=== PATIENT | female | born 1975 | race Caucasian/White ===

== ENCOUNTER 2016-05-03 10:36 | Emergency (ER) | payer OTHER ==
[~2016-05-03] VITALS: Wt 71.0 kg
[2016-05-03] MEDS ORDERED: ONDANSETRON (ODT) 4 MG TAB ODT STA (12:03)
[2016-05-03] MEDS ORDERED: HYDROCODONE/APAP (5/325) TAB PO ONE (12:30)
[2016-05-03 13:56] LABS: ADD UMIC NO; URINE BILIRUBIN (Dip) NEGATIVE (NEGATIVE); URINE BLOOD (Dip) NEGATIVE (NEGATIVE); URINE COLOR LT. YELLOW (YELLOW); URINE GLUCOSE (Dip) >=1000 % (NEGATIVE); URINE KETONES (Dip) 15 (NEGATIVE); URINE LEUKOCYTE ESTERASE (Dip) NEGATIVE (NEGATIVE); URINE NITRITE (Dip) NEGATIVE (NEGATIVE); URINE TOTAL PROTEIN (Dip) NEGATIVE (NEGATIVE); URINE UROBILINOGEN (Dip) 1.0 E.U./dL (0.1-1.0)
[2016-05-03] MEDS ORDERED: FIORICET PO (14:32)
[2016-05-03] MEDS ORDERED: INSU300I SQ (14:32)
[2016-05-03 14:48] VITALS: BP 122/64; PULSE 71; RESP 18
--- NOTE | 2016-05-03 14:52 | ERD ---
ER Documentation Chief Complaint Date/Time DATE: 05/03/16 TIME: 14:49 Chief Complaint HEADACHE X 2 DAYS HPI 40-year-old female with a past medical history of type 1 diabetes and hypothyroidism presents to the ED complaining of an intermittent headache that started 1 week ago. Describes the pain as a severe sensation and states that it is in the temporal region and radiates to the back of her head. Reports that she has had one episode of nonbilious nonbloody vomiting. States that her blood sugar this morning at home was 39. Reports that she takes 38 units of Toujeo insulin. Denies any head or neck trauma. Denies any weakness, numbness or tingling, dizziness, cough, rhinorrhea, abdominal pain, diarrhea, rashes. ROS All systems reviewed and are negative except as per history of present illness. Medications Home Meds Active Scripts Insulin Glargine,Hum.rec.anlog (Toujeo Solostar) 300 Unit/1 Ml Insuln.pen, 38 UNIT SQ DAILY, #1 PKG 1 package with 3 pens Prov:MARIA DE JESUS RIVERA PA-C 05/03/16 Acetamin/Butalbital/Caffeine* (Fioricet*) [id number] Tab, 1 TAB PO Q6H Y for PAIN, #30 TAB Prov:MARIA DE JESUS RIVERA PA-C 05/03/16 PMhx/Soc Medical and Surgical Hx: pt denies Medical Hx, pt denies Surgical Hx Physical Exam Vitals Vital Signs Date Time Temp Pulse Resp B/P Pulse Ox O2 Delivery O2 Flow Rate FiO2 05/03/16 10:43 98.0 74 18 127/66 99 Physical Exam Const: Lao-jsz-zujzepahs, well-nourished. In no acute distress. Head: Atraumatic, normocephalic Eyes: Normal Conjunctiva without injection. No purulent discharge. PERRLA. EOMI ENT: Normal external ear. Ear canal without erythema. Tympanic membrane pearly carballo without effusion or bulging. Nasal canal clear with normal turbinates. Moist oropharynx without tonsillar exudates. Non-erythematous pharynx. Uvula midline. No drooling. No trismus. Neck: No cervical midline tenderness. Full range of motion. No meningismus. No cervical lymphadenopathy. No JVD. Resp: Clear to auscultation bilaterally. No wheezing, rhonchi, rales, or crackles. No accessory muscle use. No retractions. Cardio: Regular rate and rhythm. No murmurs, rubs or gallops. Abd: Soft, non tender, non distended. Normal bowel sounds. No palpable masses. No rebound tenderness. No guarding. Negative McBurney's Point. Negative Martinez's Sign. Skin: Normal skin turgor. No petechiae or rashes Back: No midline tenderness. No CVA tenderness. Ext: No cyanosis, or edema. Distal pulses intact bilaterally. Neur: Awake and alert. Normal gait. Normal coordination. Cranial Nerves II- VII intact. Normal finger to nose. Muscle strength 5/5. Sensation intact. Psych: Normal Mood and Affect Results 24 hrs Laboratory Tests Test 05/03/16 13:03 05/03/16 13:05 Bedside Glucose 155mg/dL Urine Bilirubin NEGATIVE Urine Clarity CLEAR Urine Color LT. YELLOW Urine Glucose >=1000% Urine Hemoglobin NEGATIVE Urine Ketones 15 Urine Leukocyte Esterase NEGATIVE Urine Nitrite NEGATIVE Urine Specific [place] 1.010 Urine Total Protein NEGATIVE Urine Urobilinogen 1.0 E.U./dL Urine pH 6.5 Current Medications Medications (Trade) Dose Ordered Sig/Cathie Route PRN Reason Start Time Stop Time Status Last Admin Dose Admin Ondansetron HCl (Zofran Odt) 4 mg ONCE STAT ODT 05/03/16 12:03 05/03/16 12:08 DC 05/03/16 12:24 Acetaminophen/ Hydrocodone Bitart ([place] (5/325)) 1 tab ONCE ONCE PO 05/03/16 12:30 05/03/16 12:31 DC 05/03/16 12:24 Procedures/MDM This is a 40-year-old female with a past medical history of type 1 diabetes, hypothyroidism presents the ED complaining of a headache that started intermittently 1 week ago. Patient is afebrile and nontoxic-appearing. Patient has normal vital signs. Patient is neurologically intact. Patient was treated here in the ED with [place] and Zofran with improvement of her symptoms. Patient likely has a migraine versus tension headache. Accu-Chek was 155. Urinalysis showed no ketones, hematuria, leukocyte esterase, nitrites. Negative urine . There is low suspicion for cluster headaches, DKA, HHS, intracranial bleed, subarachnoid hemorrhage, subdural hematoma, epidural hematoma, TIA, stroke, seizures, meningitis, or other emergent conditions. Discharge medications: Refill on Toujeo Solostar insulin, Fioricet Follow up with primary care physician in 1-2 days. Instructed patient to return to the ED sooner for any worsening symptoms. Patient's questions were answered. Patient understood and agreed with discharge plan. Patient discharged stable. Departure Diagnosis: Primary Impression: Headache Headache type: unspecified Headache chronicity pattern: unspecified pattern Intractability: not intractable Qualified Code: R51 - Nonintractable headache, unspecified chronicity pattern, unspecified headache type Condition: Stable Patient Instructions: Headache, Unspecified, Insulin Glargine Solution for injection Referrals: ONEIDA MCNALLY (PCP) [facility] YOU HAVE RECEIVED A MEDICAL SCREENING EXAM AND THE RESULTS INDICATE THAT YOU DO NOT HAVE A CONDITION THAT REQUIRES URGENT TREATMENT IN THE EMERGENCY DEPARTMENT. FURTHER EVALUATION AND TREATMENT OF YOUR CONDITION CAN WAIT UNTIL YOU ARE SEEN IN YOUR DOCTORS OFFICE WITHIN THE NEXT 1-2 DAYS. IT IS YOUR RESPONSIBILITY TO MAKE AN APPOINTMENT FOR [facility]ARE. IF YOU HAVE A PRIMARY DOCTOR --you should call your primary doctor and schedule an appointment IF YOU DO NOT HAVE A PRIMARY DOCTOR YOU CAN CALL OUR PHYSICIAN REFERRAL HOTLINE AT IF YOU CAN NOT AFFORD TO SEE A PHYSICIAN YOU CAN CHOSE FROM THE FOLLOWING [facility] [address] [facility] [address] [facility] [address] [facility] [address] [facility]. [facility] [address] [facility]. [address] [facility] YOU HAVE RECEIVED A MEDICAL SCREENING EXAM AND THE RESULTS INDICATE THAT YOU DO NOT HAVE A CONDITION THAT REQUIRES URGENT TREATMENT IN THE EMERGENCY DEPARTMENT. FURTHER EVALUATION AND TREATMENT OF YOUR CONDITION CAN WAIT UNTIL YOU ARE SEEN IN YOUR DOCTORS OFFICE WITHIN THE NEXT 1-2 DAYS. IT IS YOUR RESPONSIBILITY TO MAKE AN APPOINTMENT FOR [facility]ARE. IF YOU HAVE A PRIMARY DOCTOR --you should call your primary doctor and schedule and appointment IF YOU DO NOT HAVE A PRIMARY DOCTOR YOU CAN CALL OUR PHYSICIAN REFERRAL HOTLINE AT . IF YOU CAN NOT AFFORD TO SEE A PHYSICIAN YOU CAN CHOSE FROM THE FOLLOWING [facility] INSTITUTIONS: [facility] [address] [place] [address] [facility] [address] [place] [address] [facility] [address] [place] [address] [facility] URGENT CARE/SPECIALTIES Additional Instructions: FOLLOW UP WITH YOUR PRIMARY CARE PHYSICIAN TOMORROW.Return to this facility if you are not improving as expected. MARIA DE JESUS RIVERA PA-C May 03, 2016 14:52
== END 2016-05-03 14:49 | disposition home or self-care (01) ==
LOC: FTE 10:36
DX: R51 Headache (principal); R11.10 Vomiting, unspecified; I10 Essential (primary) hypertension; E10.9 Type 1 diabetes mellitus without complications; E03.9 Hypothyroidism, unspecified
CPT/HCPCS: 81003; 82962; Z7502; Z7610; 99284

== ENCOUNTER 2016-05-12 10:01 | Emergency (ER) | payer OTHER ==
[~2016-05-12] VITALS: Wt 69.0 kg
[~2016-05-12 10:01] MED LIST: FIORICET PO; INSU300I SQ
[2016-05-12] MEDS ORDERED: HYDROCODONE/APAP (5/325) TAB PO ONE (12:00)
--- NOTE | 2016-05-12 13:23 | RADRPT ---
PROCEDURE: Left Shoulder Series CLINICAL INDICATION: Left shoulder pain after fall TECHNIQUE: Two views of the left shoulder are available for review. COMPARISON: None available FINDINGS: There is normal mineralization and alignment of the bones of the left shoulder. No fracture or disl ocation is identified. There are mild degenerative changes of the left glenohumeral joint.. The ac romioclavicular joint is grossly unremarkable. The visualized portions of the left chest wall are wi thin normal limits. The soft tissues are unremarkable. IMPRESSION: 1. No evidence of acute fracture or dislocation. 2. Mild degenerative changes of the left shoulder. RPTAT: KK .Sathya Sevilla MD, MD Date Time Electronically viewed and signed by .Sathya Sevilla MD, on 05/12/2016 13:22 .B/
--- NOTE | 2016-05-12 13:23 | RADRPT ---
PROCEDURE: XR Humerus. CLINICAL INDICATION: Left upper extremity pain after trauma TECHNIQUE: 2 views of the left humerus were obtained. COMPARISON: No prior studies are available for comparison. FINDINGS: There is normal mineralization and alignment of the bones of the left humerus. There is no evidence of acute fracture or dislocation. There are mild degenerative changes of the left shoulder joint.. The soft tissues are within normal limits. IMPRESSION: 1. No evidence of acute fracture or dislocation. RPTAT: KK .Sathya Sevilla MD, MD Date Time Electronically viewed and signed by .Sathya Sevilla MD, on 05/12/2016 13:23 .B/
--- NOTE | 2016-05-12 13:30 | ERD ---
ER Documentation Chief Complaint Date/Time DATE: 05/12/16 TIME: 13:27 Chief Complaint left shoulder pain from a fall today. no distress no deformity HPI Is a 40-year-old female who presents the emergency department today complaining of left shoulder and arm pain after sustaining a mechanical fall earlier today. Patient states that she fell at home in her kitchen when she slipped out of the chair. States she has a previous injury to her left shoulder but she is unsure what is wrong. States she took ibuprofen for the pain. ROS All systems reviewed and are negative except as per history of present illness. Medications Home Meds Active Scripts Acetaminophen* (Tylophen*) 500 Mg Capsule, 1 CAP PO Q6H Y for PAIN AND OR ELEVATED TEMP, #30 CAP Prov:DESHAUN PEREZ PA-C 05/12/16 Naproxen* (Naprosyn*) 500 Mg Tablet, 500 MG PO BID Y for PAIN AND/OR INFLAMMATION, #30 TAB Prov:DESHAUN PEREZ PA-C 05/12/16 Tramadol HCl (Tramadol HCl) 50 Mg Tablet, 50 MG PO Q4 Y for PAIN, #20 TAB Prov:DESHAUN PEREZ PA-C 05/12/16 Insulin Glargine,Hum.rec.anlog (Tousofi Solostar) 300 Unit/1 Ml Insuln.pen, 38 UNIT SQ DAILY, #1 PKG 1 package with 3 pens Prov:MARIA DE JESUS RIVERA PA-C 05/03/16 Acetamin/Butalbital/Caffeine* (Fioricet*) [id number] Tab, 1 TAB PO Q6H Y for PAIN, #30 TAB Prov:MARIA DE JESUS RIVERA PA-C 05/03/16 PMhx/Soc Medical and Surgical Hx: pt denies Medical Hx, pt denies Surgical Hx Physical Exam Vitals Vital Signs Date Time Temp Pulse Resp B/P Pulse Ox O2 Delivery O2 Flow Rate FiO2 05/12/16 10:07 97.8 80 20 115/57 98 Physical Exam Const: No acute distress Head: Atraumatic Eyes: Normal Conjunctiva ENT: Normal External Ears, Nose and Mouth. Neck: Full range of motion..~ No meningismus. Resp: Clear to auscultation bilaterally Skin: No petechiae or rashes MSK: Left shoulder and humerus with tenderness palpation. No obvious deformity. No effusion. Decreased range of motion secondary to pain. Patient was inflamed. Pulses 2+. Distal neurovascularly intact . Neur: Awake and alert Psych: Normal Mood and Affect Results 24 hrs Current Medications Medications (Trade) Dose Ordered Sig/Cathie Route PRN Reason Start Time Stop Time Status Last Admin Dose Admin Acetaminophen/ Hydrocodone Bitart ([place] (5/325)) 1 tab ONCE ONCE PO 05/12/16 12:00 05/12/16 12:08 DC 05/12/16 11:55 DIAGNOSTIC IMAGING REPORT Patient: DIANA AMANDA : 1975 Age: 40 Sex: F MR #: [id number] DOS: 05/12/16 0000 Ordering MD: DESHAUN PEREZ PA-C Location: [facility] Room/Bed: PROCEDURE: XR Humerus. CLINICAL INDICATION: Left upper extremity pain after trauma TECHNIQUE: 2 views of the left humerus were obtained. COMPARISON: No prior studies are available for comparison. FINDINGS: There is normal mineralization and alignment of the bones of the left humerus. There is no evidence of acute fracture or dislocation. There are mild degenerative changes of the left shoulder joint.. The soft tissues are within normal limits. IMPRESSION: 1. No evidence of acute fracture or dislocation. RPTAT: KK .Sathya Sevilla MD, MD Date Time Electronically viewed and signed by .Sathya Sevilla MD, MD on 2016 13:23 .B/ CC: DESHAUN PEREZ PA-C DIAGNOSTIC IMAGING REPORT Patient: DIANA AMANDA : 1975 Age: 40 Sex: F MR #: [id number] DOS: 05/12/16 0000 Ordering MD: DESHAUN PEREZ PA-C Location: [facility] Room/Bed: PROCEDURE: Left Shoulder Series CLINICAL INDICATION: Left shoulder pain after fall TECHNIQUE: Two views of the left shoulder are available for review. COMPARISON: None available FINDINGS: There is normal mineralization and alignment of the bones of the left shoulder. No fracture or dislocation is identified. There are mild degenerative changes of the left glenohumeral joint.. The acromioclavicular joint is grossly unremarkable. The visualized portions of the left chest wall are within normal limits. The soft tissues are unremarkable. IMPRESSION: 1. No evidence of acute fracture or dislocation. 2. Mild degenerative changes of the left shoulder. RPTAT: KK .Sathya Sevilla MD, Date Time Electronically viewed and signed by .Sathya Sevilla MD, MD on 2016 13:22 .B/ CC: DESHAUN PEREZ PA-C Procedures/[facility] This a 40-year-old female who presents to the emergency department today complaining of left shoulder and arm pain after sustaining a mechanical fall earlier today. Given that there is trauma and patient was unable to move her shoulder without pain I did obtain images. Per the radiology report images of the left humerus and shoulder show no acute fracture dislocation. There are mild degenerative changes of the left shoulder. Specifically in the glenohumeral joint. AC joint is unremarkable. Patient symptoms at this time was consistent with sprain versus strain versus contusion. Patient does have a history of shoulder problems in the past however she was unsure if she could tell me if she had a rotator cuff tear or tendinitis. I have explained to the patient that she may need further evaluation as an outpatient by an office specialist. Patient understood. Patient was given [place] and a sling here in the emergency department. She was given a prescription for tramadol, Naprosyn and Tylenol for home. At this time the patient is stable for discharge and outpatient management. Patient should follow up with their PCP in the next 1-2 days. They may return to the emergency department sooner for any persistent or worsening of symptoms. Patient understood and agreed with the plan. Departure Diagnosis: Primary Impression: Shoulder injury Encounter type: initial encounter Laterality: left Qualified Code: S49.92XA - Shoulder injury, left, initial encounter Condition: DESHAUN Horne PA-C May 12, 2016 13:30
[2016-05-12] MEDS ORDERED: NAPR-260 PO (13:32)
[2016-05-12] MEDS ORDERED: TRAM50TA2 PO (13:32)
[2016-05-12] MEDS ORDERED: ACET500C5 PO (13:33)
[2016-05-12 13:42] VITALS: BP 113/56; PULSE 69; RESP 18
== END 2016-05-12 13:44 | disposition home or self-care (01) ==
LOC: FTE 10:01
DX: S49.92XA Unspecified injury of left shoulder and upper arm, initial encounter (principal); W07.XXXA Fall from chair, initial encounter; Y92.000 Kitchen of unspecified non-institutional (private) residence as the place of occurrence of the external cause; Z79.4 Long term (current) use of insulin
CPT/HCPCS: 73030; 73060; Z7502; Z7610

== ENCOUNTER 2018-06-01 06:19 | Day surgery (SDC) | payer OTHER ==
[2018-06-01] VITALS (9 sets, daily range): BP systolic 95–119; BP diastolic 59–79; PULSE 65–88; RESP 12–18; Ht 167.6 cm; Wt 65.4 kg
[~2018-06-01] VITALS: Ht 167.6 cm; Wt 65.4 kg
[~2018-06-01 06:19] MED LIST changes: +ACET500C5 PO; +NAPR-985 PO; +TRAM50TA2 PO
[2018-06-01] MEDS ORDERED: LEVO125T7 PO (07:13)
[2018-06-01] MEDS ORDERED: INSU300I SQ (07:13)
[2018-06-01] MEDS ORDERED: LOSA25TA12 PO (07:13)
[2018-06-01] MEDS ORDERED: INSU200I SQ (07:13)
[2018-06-01] MEDS ORDERED: CEFAZOLIN 2 GM/50 ML (PMX) 50 ML IVPB SCH (07:30)
[2018-06-01] MEDS ORDERED: SOD CHLORIDE 0.9% 1,000 ML IV ONE (07:30)
--- NOTE | 2018-06-01 07:55 | PREAC ---
Date/Time of Note Date/Time of Note DATE: 06/01/18 TIME: 07:52 Anesthesia Eval and Record Evaluation Time Pre-Procedure Interview DATE: 06/01/18 TIME: 07:52 Age 42 Sex female NPO: 8 hrs Preoperative diagnosis posterior neck mass lipoma Planned procedure excision back lipoma Past Medical History Past Medical History: Includes Cardio: HTN Endo: Diabetes Surgery & Anesthesia Issues No known issue Meds Anticoagulation: No Beta Phill within 24 hr: No Reason Beta Phill not given: Pt. not on B-Phill Reported Medications Losartan Potassium* (Losartan Potassium*) 25 Mg Tablet, 25 MG PO BID, TAB 06/01/18 Levothyroxine Sodium* (Levothyroxine Sodium*) 125 Mcg Tablet, 125 MCG PO BEFORE BREAKFAST, #30 TAB 06/01/18 Insulin Lispro (Humalog Kwikpen) 200 Unit/1 Ml Insuln.pen, 4 UNIT SQ TIDM A, EA 06/01/18 Insulin Glargine,Hum.rec.anlog (Toujeo Solostar) 300 Unit/1 Ml Insuln.pen, 32 UNIT SQ DAILY, EA 06/01/18 Discontinued Scripts Acetaminophen* (Tylophen*) 500 Mg Capsule, 1 CAP PO Q6H PRN for PAIN AND OR ELEVATED TEMP, #30 CAP Prov:DESHAUN PEREZ PA-C 05/12/16 Naproxen* (Naprosyn*) 500 Mg Tablet, 500 MG PO BID PRN for PAIN AND/OR INFLAMMATION, #30 TAB Prov:DESHAUN PEREZ PA-C 05/12/16 Tramadol HCl (Tramadol HCl) 50 Mg Tablet, 50 MG PO Q4 PRN for PAIN, #20 TAB Prov:DESHAUN PEREZ PA-C 05/12/16 Insulin Glargine,Hum.rec.anlog (Toujeo Solostar) 300 Unit/1 Ml Insuln.pen, 38 UNIT SQ DAILY, #1 PKG 1 package with 3 pens Prov:MARIA DE JESUS RIVERA PA-C 05/03/16 Acetamin/Butalbital/Caffeine* (Fioricet*) [id number] Tab, 1 TAB PO Q6H PRN for PAIN, #30 TAB Prov:MARIA DE JESUS RIVERA PA-C 05/03/16 Current Medications Cefazolin Sodium/ Dextrose 50 ml @ 100 mls/hr PRE-OP IVPB ; Start 06/01/18 at 07:30; Stop 06/02/18 at 15:00 Sodium Chloride 1,000 ml @ 75 mls/hr [id number] ONCE IV ; Start 06/01/18 at 07:30; Stop 06/01/18 at 20:49 Meds reviewed: Yes Allergies Coded Allergies: latex (Verified Allergy, Mild, 06/01/18) adhesive (Verified Allergy, Unknown, 06/01/18) Allergies Reviewed: Yes Labs/Studies Labs Reviewed: Reviewed by anesthesiologist test: Negative Studies: ECG Pre-procedure Exam Last vitals Vital Signs Date Temp Pulse Resp B/P (MAP) Pulse Ox O2 O2 Flow FiO2 Time Delivery Rate 06/01/18 98.0 74 18 111/64 96 Room Air 07:13 (80) Airway: Adequate mouth opening Mallampati: Mallampati I Teeth: Normal Lung: Normal Heart: Normal ASA Physical Status ASA physical status: 2 Emergency: None Planned Anesthetic General/MAC: ETT, TIVA Planned Pain Management Parenteral pain med Pre-operative Attestations Prior to commencing anesthesia and surgery, the patient was re-evaluated, there was verification of: *The patient's identity *The results of appropriate recent lab work and preoperative vital signs *The above evaluation not changing prior to induction *Anesthetic plan, risk benefits, alternative and complications discussed with patient/family; questions answered; patient/family understands, accepts and wishes to proceed. LIZ LINARES MD Jun 01, 2018 07:55
[2018-06-01] MEDS ORDERED: FENTAnyl 50 MCG/ML VIAL IV PRN ×3 (08:00)
[2018-06-01] MEDS ORDERED: KETOROLAC 30 MG INJ IV PRN (08:00)
[2018-06-01] MEDS ORDERED: hydrALAzine 20 MG INJ IV PRN (08:00)
[2018-06-01] MEDS ORDERED: HYDROmorphONE 1 MG/5 ML IV SYRINGE IV PRN ×3 (08:00)
[2018-06-01] MEDS ORDERED: DIPHENHYDRAMINE 50 MG INJ IV PRN (08:00)
[2018-06-01] MEDS ORDERED: LABETALOL HCL 20MG INJ IV PRN (08:00)
[2018-06-01] MEDS ORDERED: MEPERIDINE 25 MG INJ IV PRN (08:00)
[2018-06-01] MEDS ORDERED: OXYCODONE/ACETAMINOPHEN (5/325) TAB PO PRN ×2 (08:00)
[2018-06-01] MEDS ORDERED: ONDANSETRON 4 MG INJ IV PRN (08:00)
[2018-06-01] MEDS ORDERED: PROPOFOL 20 ML ONE ×2 (08:10→08:11)
[2018-06-01] MEDS ORDERED: CEFAZOLIN 1 GM INJ ONE (08:10)
[2018-06-01] MEDS ORDERED: MIDAZOLAM 1 MG/ML 2 ML INJ ONE (08:11)
[2018-06-01] MEDS ORDERED: METOCLOPRAMIDE 10 MG INJ ONE (08:11)
[2018-06-01] MEDS ORDERED: FENTAnyl 50 MCG/ML VIAL ONE (08:12)
[2018-06-01] MEDS ORDERED: DEXTROSE 50% 50 ML SYRINGE ONE (08:27)
[2018-06-01] MEDS ORDERED: DEXTROSE 50% 50 ML SYRINGE IV ONE (08:30)
[2018-06-01] MEDS ORDERED: LIDOCAINE 1%/EPI (1:100,000) (MDV) 20 ML ONE (08:37)
[2018-06-01] MEDS ORDERED: BUPIVACAINE 0.25% (MPF) 30 ML INJ ONE (08:37)
[2018-06-01] MEDS ORDERED: KETOROLAC 30 MG INJ ONE (09:26)
--- NOTE | 2018-06-01 10:25 | OPR ---
Date/Time of Note Date/Time of Note DATE: 06/01/18 TIME: 10:19 Operative Report Procedure Date: Jun 01, 2018 Preoperative Diagnosis Lipoma of the back Postoperative Diagnosis Large sebaceous cyst of the back Operation/Procedure Performed Excision of large sebaceous cyst of the back Excision of excess skin Rearrangement of adjacent subcutaneous tissue Surgeon see signature line Tool Room Lathe Operator None Anesthesia Type: moderate sedation Estimated Blood Loss: 0 - 10 ml's Transfusion none Specimen Sebaceous cyst Grafts/Implants none Complications none Pt Condition Post Procedure: stable Disposition: PACU Indications Patient had a very large sebaceous cyst of the center of the back that has been causing pain and discomfort with no discharge. It is so deep that had no skin discoloration or discharge but because a significant amount of pain at the patient and we at first thought it was a lipoma. Upon going to the operating room and cutting into the area it was apparent that this was a sebaceous cyst and it required extensive excision with rearrangement of nearby subcutaneous tissue so that the skin can be reapproximated without tension. Procedure Description Patient was laid in a lateral position on the OR table after deep sedation was started. The back was prepped and draped with chlorhexidine solution. At the center of the back about 5 cm inferior to the neck a large lipoma-like lesion was noted it was about 3 cm in size. A linear incision was made overlying the area of the lump where the patient had previous excision and a very large sebaceous cyst was encountered. A significant amount of white sebum came protruding. This was scooped away and thereafter I realize only way to fully excise the cyst so that it does not recur and cause future problems would be to excise down to the level of the fascia and take some of the skin that the cyst was abutting with it. I therefore excised an elliptical piece of skin so that the wound can be closed appropriately. Since the wound was in the back the skin was very tight and well adhered to adjacent tissue. I therefore created a plane between the dermis and the subcutaneous fat circumferentially going in 3 cm to undermine the wound circumferentially. Once this was done the skin was reapproximated using horizontal mattress sutures reinforced with interrupted simple sutures with 2-0 nylon. The skin was also then reapproximated using 4-0 Monocryl subcuticular suture. 15 mL of quarter percent Marcaine with epi and 1% lidocaine plain was instilled into the wound for local analgesia. All instrument sponge and needle counts were correct at the end of the procedure although the tip of 1 of the needles appeared to be missing on the needle tray and this was checked for with an x-ray was negative at the area of the wound. The patient tolerated the procedure well and was discharged to recovery suite in stable condition. AUSTYN MAI Jun 01, 2018 10:25
--- NOTE | 2018-06-01 15:39 | PAC ---
Date/Time of Note Date/Time of Note DATE: 06/01/18 TIME: 15:38 Post-Anesthesia Notes Post-Anesthesia Note Last documented vital signs Vital Signs Date Temp Pulse Resp B/P (MAP) Pulse Ox O2 O2 Flow FiO2 Time Delivery Rate 06/01/18 97.3 79 14 115/79 100 Room Air 10:31 (91) Activity: WNL Respiratory function: WNL Cardiovascular function: WNL Mental status: Baseline Pain reasonably controlled: Yes Hydration appropriate: Yes Nausea/Vomiting absent: No LIZ LINARES MD Jun 01, 2018 15:39
== END 2018-06-01 10:57 | disposition home or self-care (01) ==
LOC: SDS 06:19
PROVIDERS: ATTEND Surgery Surgical Critical Care
DX: L72.0 Epidermal cyst (principal); L90.5 Scar conditions and fibrosis of skin; I10 Essential (primary) hypertension; E11.9 Type 2 diabetes mellitus without complications
CPT/HCPCS: 14000; 71045; 82962; 88304; J0690; J1885; J2250; J2765; J3010; Z7512; Z7610

== ENCOUNTER 2018-06-27 09:36 | Observation (INO) | payer OTHER ==
[~2018-06-27] VITALS: Ht 167.6 cm; Wt 66.2 kg
[~2018-06-27 09:36] MED LIST changes: -ACET500C5 PO; -FIORICET PO; +INSU200I SQ; +LEVO125T7 PO; +LOSA25TA12 PO; -NAPR-985 PO; -TRAM50TA2 PO
[2018-06-27 09:49] VITALS: Ht 167.6 cm; Wt 66.2 kg
[2018-06-27] MEDS ORDERED: HYDR-4011 PO (11:09)
[2018-06-27] MEDS ORDERED: NAPR-985 PO (11:09)
--- NOTE | 2018-06-27 13:18 | ERD ---
ER Documentation Chief Complaint Chief Complaint wound check sutures removed yesterday, still bleeding HPI 42-year-old female history of diabetes, hypertension and hypothyroidism status post remote thyroidectomy presents the ED complaining of nonhealing upper back wound. Patient status post excision of a lipoma on 06/01/2018 with subsequent wound dehiscence. Complains of mild pain with intermittent discharge small amount of clear discharge but no bleeding. No shortness of breath, cough, chest pain, palpitations, abdominal pain, nausea or vomiting. No fevers or chills. ROS All systems reviewed and are negative except as per history of present illness. Medications Home Meds Active Scripts Naproxen* (Naprosyn*) 500 Mg Tablet, 500 MG PO BID PRN for PAIN AND/OR INFL AMMATION, #30 TAB Prov:DARIAN HARDWICK PA-C 06/27/18 Hydrocodone/Acetaminophen (Hayden 5-325 Tablet) 1 Each Tablet, 1 TAB PO Q6H PRN for PAIN, #7 TAB Prov:DARIAN HARDWICK PA-C 06/27/18 Reported Medications Losartan Potassium* (Losartan Potassium*) 25 Mg Tablet, 25 MG PO BID, TAB 06/01/18 Levothyroxine Sodium* (Levothyroxine Sodium*) 125 Mcg Tablet, 125 MCG PO BEFORE BREAKFAST, #30 TAB 06/01/18 Insulin Lispro (Humalog Kwikpen) 200 Unit/1 Ml Insuln.pen, 4 UNIT SQ TIDM A, EA 06/01/18 Insulin Glargine,Hum.rec.anlog (Toujeo Solostar) 300 Unit/1 Ml Insuln.pen, 32 UNIT SQ DAILY, EA 06/01/18 Allergies Allergies: Coded Allergies: latex (Verified Allergy, Mild, 06/27/18) adhesive (Verified Allergy, Unknown, 06/27/18) PMhx/Soc Reviewed in chart. As per HPI. History of Surgery: Yes (THYROIDECTOMY, LT HIP BROKEN/SX) Anesthesia Reaction: No Hx Neurological Disorder: No Hx Respiratory Disorders: No Hx Cardiac Disorders: No Hx Psychiatric Problems: No Hx Miscellaneous Medical Probl: No Hx Alcohol Use: Yes (OCC) Hx Substance Use: No Hx Tobacco Use: No Smoking Status: Never smoker FmHx No family history relevant to presenting complaint Physical Exam Vitals Vital Signs Date Temp Pulse Resp B/P (MAP) Pulse Ox O2 O2 Flow FiO2 Time Delivery Rate 06/27/18 97.4 78 16 105/59 100 09:49 (74) Physical Exam Const: Mild distress Head: Atraumatic Eyes: Normal Conjunctiva ENT: Normal External Ears, Nose and Mouth. Neck: Full range of motion. No meningismus. Resp: Clear to auscultation bilaterally Cardio: Regular rate and rhythm, no murmurs Abd: Soft, non tender, non distended. Normal bowel sounds Skin: No petechiae or rashes Back: Upper back in the midline there is a nonhealing wound approximately 4 cm with packing. Mild surrounding tenderness but no erythema, induration or drainage. Ext: No cyanosis, or edema Neur: Awake and alert Psych: Normal Mood and Affect Result Diagram: 06/27/18 1455 06/27/18 1426 Procedures/MDM DOCUMENTS REVIEWED: ED nurse, prior records EKG: Rate/Rhythm: Normal Sinus Rhythm QRS, ST, T-waves: No changes consistent w/ acute ischemia Impression: No evidence of ischemia or arrhythmia IMAGING: Chest AP portable. Cardiac silhouette is normal. The costophrenic angles are clear. No effusions or infiltrates. No abnormalities of the bony thorax. My interpretation. [employer]-year-old female history of diabetes, hypertension and hypothyroidism status post remote thyroidectomy presents the ED complaining of nonhealing upper back wound. Patient status post excision of a lipoma on 06/01/2018 with subsequent postop wound infection and wound dehiscence. No fever or criteria for systemic inflammatory response syndrome. No signs of surrounding cellulitis or necrotizing fasciitis. Ancef 1 gram IV piggyback given. Admit to med/surg for intraoperative debridement and closure, further evaluation and management. CALLS/CONSULTS: Time: 12:28, Dr. Culver. Recommends Ancef 1 g IV and admission for operative debridement. CALLS/CONSULTS: Time: 12:53, Dr. Cormier PATIENT CARE TRANSITIONED: Time: 13:15, Dr. Cormier. Counseled patient regarding diagnosis, diagnostic results and plan for admission. Departure Diagnosis: Primary Impression: Back pain Back pain location: back pain in unspecified location Chronicity: acute Back pain laterality: unspecified Qualified Codes: M54.9 - Dorsalgia, unspecified Additional Impressions: Postoperative wound infection Insulin dependent diabetes mellitus Condition: Serious Patient Instructions: Wound Care Referrals: [facility] Additional Instructions: FOLLOW UP WITH YOUR PRIMARY CARE PHYSICIAN TOMORROW.Return to this facility if you are not improving as expected. JOSEPH SCHULTZ MD June 27, 2018 13:14
[2018-06-27] MEDS ORDERED: ACETAMINOPHEN 325 MG TAB PO PRN (13:30)
[2018-06-27] MEDS ORDERED: CEFAZOLIN 1 GM/50 ML (PMX) 50 ML IVPB SCH (13:30)
[2018-06-27] MEDS ORDERED: ONDANSETRON 4 MG INJ IV PRN (13:30)
[2018-06-27 20:51] VITALS: BP 130/68; PULSE 78; RESP 18
[2018-06-27] MEDS ORDERED: morphine 4 MG/ML VIAL IV STA (23:15)
[2018-06-27] MEDS ORDERED: LORAZEPAM 2 MG INJ IV ONE (23:30)
[2018-06-28] MEDS ORDERED: LIDOCAINE 1% (MPF) 30 ML INJ ONE (00:10)
[2018-06-28] MEDS: DEXTROSE 5%-0.9% NACL 1,000 ML IV SCH ×2 (00:30→13:50)
[2018-06-28] MEDS ORDERED: GLUCOSE GEL 15 GRAM TUBE PO PRN ×2 (01:00)
[2018-06-28] MEDS ORDERED: GLUCAGON 1 MG INJ IM PRN (01:00)
[2018-06-28] MEDS ORDERED: GLUCOSE GEL 15 GRAM TUBE BUCCAL PRN (01:00)
[2018-06-28] MEDS ORDERED: DEXTROSE 50% 50 ML SYRINGE IV PRN ×2 (01:00)
[2018-06-28 02:00] VITALS: BP 99/62; PULSE 71; RESP 18
[2018-06-28] MEDS: TOUJEO SC SCH ×2 (02:30→08:31)
[2018-06-28] MEDS ORDERED: LEVOTHYROXINE 125 MCG TAB PO SCH (06:00)
[2018-06-28] MEDS: INSULIN ASPART [NOVOLOG] 3 ML PEN SC SCH ×2 (08:00→12:34)
[2018-06-28 08:05] VITALS: BP 106/55; PULSE 63; RESP 16
[2018-06-28] MEDS ORDERED: ACETAMINOPHEN 325 MG TAB PO PRN (08:30)
[2018-06-28] MEDS ORDERED: LOSARTAN 25 MG TAB PO SCH (09:00)
[2018-06-28 15:37] VITALS: BP 106/68; PULSE 71; RESP 18
== END 2018-06-28 16:30 | disposition home or self-care (01) ==
LOC: FTE 09:36 → 2NE 13:17
PROVIDERS: ADMIT Internal Medicine; ATTEND Internal Medicine
DX: M54.9 Dorsalgia, unspecified (principal); T81.49XA Infection following a procedure, other surgical site, initial encounter; I10 Essential (primary) hypertension; E03.9 Hypothyroidism, unspecified; E11.9 Type 2 diabetes mellitus without complications; Z79.4 Long term (current) use of insulin; Y83.8 Other surgical procedures as the cause of abnormal reaction of the patient, or of later complication, without mention of misadventure at the time of the procedure
CPT/HCPCS: 71045; 80048; 81001; 82962; 84703; 85025; 85610; 85730; 93005; J0690; J1815; J2060; J2270; J7042; Z7500; Z7502; Z7610; G0378